=== PATIENT | male | born 1945 | race Caucasian/White ===

== ENCOUNTER 2016-06-10 19:02 | Observation (INO) | payer OTHER ==
[~2016-06-10] VITALS: Ht 180.3 cm; Wt 95.3 kg
[2016-06-10 21:49] LABS: HEMOGLOBIN 15.4 gm/dl (14.0-17.5); RED BLOOD COUNT 4.98 M/UL (4.20-5.50); WHITE BLOOD COUNT 5.7 K/UL (4.5-11.0)
[2016-06-10 22:19] LABS: BUN/CREATININE RATIO 20 (0-10)
[2016-06-11 05:34] LABS: BUN/CREATININE RATIO 22 (0-10)
[2016-06-11] MEDS ORDERED: ZYLOPRIM 100 M100 MG PO (12:01)
[2016-06-11] MEDS ORDERED: VERAPAMIL ER180 MG PO (12:01)
[2016-06-11] MEDS ORDERED: NEXIUM40 MG PO (12:02)
[2016-06-11] MEDS ORDERED: FISH OIL 1,0001 EAC5 PO (12:04)
[2016-06-11] MEDS ORDERED: GLUCOPHAGE1000 MG PO (12:04)
[2016-06-11] MEDS ORDERED: JANUMET XR 50-1 EACH PO (12:06)
[2016-06-12 06:17] LABS: WHITE BLOOD COUNT 6.7 K/UL (4.5-11.0)
[2016-06-12 06:26] LABS: HEMOGLOBIN 13.3 gm/dl (14.0-17.5); RED BLOOD COUNT 4.45 M/UL (4.20-5.50)
[2016-06-12 06:35] LABS: BUN/CREATININE RATIO 18 (0-10)
[2016-06-12] MEDS ORDERED: VITAMIN B-121000 MCG PO (17:46)
[2016-06-12] MEDS ORDERED: TESSALON PERLE100 MG PO (17:47)
== END 2016-06-12 18:55 | disposition home or self-care (01) ==
LOC: ER1 19:02 → ZEROF 06-11 03:00 → M/S 06-11 15:23
PROVIDERS: Emergency Medicine; Internal Medicine; ADMIT Internal Medicine
DX: M62.81 Muscle weakness (generalized) (principal); B34.9 Viral infection, unspecified; D64.9 Anemia, unspecified; D69.6 Thrombocytopenia, unspecified; I10 Essential (primary) hypertension; K21.9 Gastro-esophageal reflux disease without esophagitis; Z87.442 Personal history of urinary calculi; Z79.84 Long term (current) use of oral hypoglycemic drugs; Z79.899 Other long term (current) drug therapy; Z90.49 Acquired absence of other specified parts of digestive tract
CPT/HCPCS: 36415; 70450; 71020; 80048; 80053; 81001; 82550; 82553; 82607; 82962; 83036; 83690; 83735; 83874; 83880; 83921; 84100; 84443; 84484; 85025; 85027; 85610; 85730; 87086; 93005; 94640; 94664; 96361; 96374; 99285; G0378; J1650; J2405; J7030